=== PATIENT | female | born 1975 | race Caucasian/White ===

== ENCOUNTER 2020-04-03 10:43 | Observation (INO) | payer BC, OTHER ==
[~2020-04-03] VITALS: Ht 165.1 cm; Wt 74.0 kg
[~2020-04-03 10:43] MED LIST: DIME120C2 PO; HYDR-3246 PO; PREG100C PO
[2020-04-03] MEDS ORDERED: MORPHINE SULFATE 4 MG/ML, 1ML ONE ×2 (11:26→12:50)
[2020-04-03] MEDS ORDERED: ONDANSETRON 2MG/ML, 2ML ONE (11:26)
[2020-04-03] MEDS: MORPHINE SULFATE 4 MG/ML, 1ML IVPush PRN ×2 (11:28→12:52)
[2020-04-03 11:30] LABS: BASOPHILS % (AUTO) 1 % (0-1); EOSINOPHILS % (AUTO) 2 % (1-7); LYMPHOCYTES % (AUTO) 25 % (22-44); MEAN CORPUSCULAR HEMOGLOBIN 33.6 pg (27.0-34.8); MEAN CORPUSCULAR HGB CONC 33.4 g/dL (32.4-35.8); MEAN PLATELET VOLUME 7.7 fL (7.4-10.4); MONOCYTES % (AUTO) 5 % (2-9); NEUTROPHILS % (AUTO) 67 % (42-75); PLATELET COUNT 321 x10^3/uL (130-400); RED BLOOD COUNT 4.62 x10^6/uL (3.82-5.3); RED CELL DISTRIBUTION WIDTH 13.4 % (9.6-15.2)
[2020-04-03] MEDS ORDERED: SODIUM CHLORIDE FLUSH 10ML SYR IVF ONE (11:30)
[2020-04-03] MEDS ORDERED: ONDANSETRON 2MG/ML, 2ML IVPush ONE (11:30)
--- NOTE | 2020-04-03 11:30 | NUR ---
MEDICATED NOTED ON AUG FOR LEFT SIDED CHEST PAIN ESPECIALLY WITH MOVEMENT. PT STATES ADDITIONALLY SHE HAS BEEN FEELING SOB
[2020-04-03 11:31] LABS: MD NO
[2020-04-03 11:42] LABS: ALBUMIN 3.5 g/dL (3.4-5.0); ANION GAP 6 mmol/L (5-15); CHLORIDE 112 mmol/L (98-107)
[2020-04-03 11:49] LABS: ALANINE AMINOTRANSFERASE 10 U/L (12-78); ALKALINE PHOSPHATASE 84 U/L (45-117); BILIRUBIN,TOTAL 0.5 mg/dL (0.2-1.0); CREATININE 0.93 mg/dL (0.55-1.02); TOTAL PROTEIN 6.8 g/dL (6.4-8.2); TROPONIN I < 0.015 ng/mL (0.000-0.045)
--- NOTE | 2020-04-03 12:20 | NUR ---
OFF FLOOR TO CT
[2020-04-03] MEDS ORDERED: OMNIPAQUE 350 MG/ML, 75ML BOTTLE ONE (12:30)
--- NOTE | 2020-04-03 12:57 | NUR ---
PT STATES CP HAS IMPROVED BUT THAT SHE NOW HAS A SQUEEZING PAIN UPPER ABDOMEN. PT REMEDICATED NOTED ON AUG FOR THIS PAIN
[2020-04-03] MEDS ORDERED: POTASSIUM CHLORIDE 20 MEQ TAB.ER.PRT PO ONE (14:00)
[2020-04-03] MEDS ORDERED: METOPROLOL TARTRATE 50 MG TAB PO ONE (14:00)
[2020-04-03] MEDS ORDERED: KETOROLAC 30 MG/1 ML IV PRN (14:00)
[2020-04-03] MEDS ORDERED: TEMAZEPAM 15 MG CAPSULE PO PRN (14:00)
[2020-04-03] MEDS ORDERED: ONDANSETRON ODT 4 MG PO PRN (14:00)
[2020-04-03] MEDS ORDERED: ACETAMINOPHEN 325 MG TABLET PO PRN (14:00)
[2020-04-03] MEDS ORDERED: POLYETHYLENE GLYCOL 17 GM PACKET PO PRN (14:00)
[2020-04-03] MEDS ORDERED: ENOXAPARIN 40 MG/0.4 ML ONE (14:04)
[2020-04-03] MEDS ORDERED: METOPROLOL TARTRATE 50 MG TAB ONE (14:04)
[2020-04-03] MEDS ORDERED: POTASSIUM CHLORIDE 20 MEQ TAB.ER.PRT ONE (14:04)
--- NOTE | 2020-04-03 14:09 | NUR ---
report to [facility] pt to be transported
[2020-04-03] MEDS: ENOXAPARIN 40 MG/0.4 ML SQ SCH (14:12)
[2020-04-03] MEDS ORDERED: GABA600T7 PO (14:38)
[2020-04-03] MEDS ORDERED: FLUO40CA9 PO (14:38)
[2020-04-03] MEDS ORDERED: GABA-827 PO (14:38)
[2020-04-03] MEDS ORDERED: CELE200C PO (14:38)
[2020-04-03 14:47] VITALS: BP 147/81
[2020-04-03 16:32] LABS: TROPONIN I < 0.015 ng/mL (0.000-0.045)
[2020-04-03] MEDS: HYDROcodone/APAP 10/325 MG TABLET PO SCH ×2 (17:09→20:16)
[2020-04-03] MEDS: GABAPENTIN 300 MG CAPSULE PO SCH ×2 (17:09→20:17)
[2020-04-03 19:33] VITALS: BP 102/66
[2020-04-03] MEDS ORDERED: HYDROcodone/APAP 10/325 MG TABLET PO SCH (21:00)
[2020-04-03] MEDS ORDERED: PREGABALIN 100 MG CAPSULE PO SCH (21:00)
[2020-04-04 01:56] VITALS: BP 104/69
[2020-04-04 08:05] VITALS: BP 131/81
[2020-04-04] MEDS: GABAPENTIN 300 MG CAPSULE PO SCH (08:16)
[2020-04-04] MEDS: HYDROcodone/APAP 10/325 MG TABLET PO SCH (08:16)
[2020-04-04] MEDS ORDERED: METOPROLOL SUCCINATE 25 MG TAB.ER.24H PO SCH (08:30)
[2020-04-04] MEDS ORDERED: FLUOXETINE HCL 20 MG CAPSULE PO SCH (09:00)
[2020-04-04] MEDS ORDERED: SENNA/DOCUSATE TABLET PO SCH (09:00)
[2020-04-04] MEDS ORDERED: REGADENOSON 0.4 MG/5 ML SYRINGE ONE (09:35)
[2020-04-04] MEDS ORDERED: FLU VACC QS2020-21(6MOS UP)/PF 60MCG/0.5 ML SYR IM ONE (12:30)
[2020-04-04] MEDS ORDERED: METO25TA91 PO (13:24)
[2020-04-04] MEDS ORDERED: GABA300C PO (13:24)
[2020-04-04 13:58] VITALS: BP 145/87
[2020-04-04] MEDS: ENOXAPARIN 40 MG/0.4 ML SQ SCH (14:13)
== END 2020-04-04 15:26 | disposition home or self-care (01) ==
LOC: ED 11:25 → SUATTDRO 13:35 → INTOOBSV 13:38 → 5SO 13:38
PROVIDERS: ADMIT Internal Medicine; ATTEND Internal Medicine
DX: I10 Essential (primary) hypertension (principal); R07.89 Other chest pain; R00.0 Tachycardia, unspecified; I27.20 Pulmonary hypertension, unspecified; I34.0 Nonrheumatic mitral (valve) insufficiency; G35 Multiple sclerosis; Q79.60 Ehlers-Danlos syndrome, unspecified; G89.29 Other chronic pain; F11.20 Opioid dependence, uncomplicated; F32.9 Major depressive disorder, single episode, unspecified; F17.200 Nicotine dependence, unspecified, uncomplicated; Z85.72 Personal history of non-Hodgkin lymphomas; Z79.899 Other long term (current) drug therapy; Z23 Encounter for immunization
CPT/HCPCS: 36415; 71270; 78452; 80053; 83735; 84443; 84484; 84703; 85025; 90471; 90686; 93005; 93017; 93306; 93356; 96372; 96374; 96375; 96376; 99285; A9502; C9898; G0378; J1650; J1885; J2270; J2405; J2785; Q9967

== ENCOUNTER 2020-05-03 08:58 | Emergency (ER) | payer BC, OTHER ==
[~2020-05-03] VITALS: Ht 165.1 cm; Wt 83.0 kg
[~2020-05-03 08:58] MED LIST changes: +CELE200C PO; +FLUO40CA9 PO; +GABA-827 PO; +GABA300C PO; +GABA600T7 PO; +METO25TA91 PO
[2020-05-03 09:04] VITALS: BP 168/92
--- NOTE | 2020-05-03 09:30 | NUR ---
charge histotechnologist note: pt to room from lobby. pt prsents to ED with c/o left ankle pain x 3 weeks, denies injury/trauma. no obvious deformity or swelling noted. pt a&o, resps even and unlabored. awaiting provider and orders.
[2020-05-03] MEDS ORDERED: HYDROcodone/APAP 5/325 TABLET PO ONE (10:00)
[2020-05-03] MEDS ORDERED: HYDROcodone/APAP 5/325 TABLET ONE (10:03)
[2020-05-03] MEDS ORDERED: KETOROLAC 30 MG/1 ML ONE (10:50)
[2020-05-03] MEDS ORDERED: ATOR20TA PO (10:56)
[2020-05-03] MEDS ORDERED: ASPI81TA45 PO (10:56)
--- NOTE | 2020-05-03 10:56 | NUR ---
PT STILL IN PAIN. ESTEBAN TRIPP NOTIFIED. IM TORADOL ORDERED AND GIVEN.
[2020-05-03] MEDS ORDERED: KETOROLAC 30 MG/1 ML IM ONE (11:00)
--- NOTE | 2020-05-03 12:30 | NUR ---
Patient given discharge instructions and they have confirmed that they understand the instructions. Patient ambulatory with steady gait.
== END 2020-05-03 12:31 | disposition home or self-care (01) ==
LOC: ED 10:00
DX: M25.572 Pain in left ankle and joints of left foot (principal); M76.62 Achilles tendinitis, left leg; G43.909 Migraine, unspecified, not intractable, without status migrainosus
CPT/HCPCS: 73610; 73630; 96372; 99284; J1885